=== PATIENT | female | born 1945 | race Caucasian/White ===

== ENCOUNTER → 2021-09-02 14:04 | Outpatient (CLI) | payer OTHER, SELFPAY | PROVIDERS: PCP Internal Medicine; Referring Provider Physician Assistant; Visit Provider Physician Assistant | DX: Z13.820 Encounter for screening for osteoporosis (principal); M81.0 Age-related osteoporosis without current pathological fracture; Z78.0 Asymptomatic menopausal state; Z90.710 Acquired absence of both cervix and uterus | CPT/HCPCS: 77080 ==

== ENCOUNTER 2023-11-20 08:40 | Emergency (ER) | payer OTHER, SELFPAY ==
[2023-11-20] VITALS (7 sets, daily range): BP systolic 123–133; BP diastolic 58–61; PULSE 56–61; RESP 16–22; TEMP 36.6; O2SAT 98–100; BMI 22.4
--- NOTE | 2023-11-20 08:52 | DI.RAD.S_ITS ---
PROCEDURE: XR CHEST 1V INDICATIONS: chest pain TECHNIQUE: One view of the chest was acquired. COMPARISON: None. FINDINGS: Surgical changes and devices: None. Lungs and pleura: Lungs are clear. No pleural effusions or pneumothorax. Mediastinum: Mediastinal contours appear normal. Heart size is normal. Bones and chest wall: No suspicious bony lesions. Overlying soft tissues appear unremarkable. IMPRESSION: No acute cardiopulmonary abnormality is seen. Dictated by: Tammy Marshall M.D. on 11/20/2023 at 9:04 Approved by: Tammy Marshall M.D. on 11/20/2023 at 9:05
--- NOTE | 2023-11-20 09:00 | EKG_ITS ---
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
--- NOTE | 2023-11-20 09:08 | ED.FALL ---
HPI - Fall General Chief Complaint: Syncope Stated Complaint: Fell In bathroom , Left foot pain Time Seen by Provider: 11/20/23 09:08 History of Present Illness HPI Narrative: Patient 78-year-old female history of atrial fibrillation on flecainide atenolol and Pradaxa presenting today with a fall in the bathroom. She is unaware of she fell but she ended up a very narrow spot in complaining of left foot pain. She denies hitting her head or losing consciousness but can not remember exactly how she fell. Denies chest pain palpitations abdominal pain nausea or vomiting. She has not had any infection symptoms Related Data Home Medications Medication Instructions Recorded Confirmed alendronate 70 mg tablet (Fosamax) 70 mg PO QWEEK 11/02/23 atenolol 50 mg tablet 50 mg PO DAILY 11/02/23 dabigatran etexilate 150 mg 150 mg PO BID 11/02/23 capsule (Pradaxa) flecainide 50 mg tablet 50 mg PO Q8H 11/02/23 Exam Initial Vital Signs Initial Vital Signs: Vital Signs Pulse Oximetry 99 11/20/23 08:46 GENERAL: Alert well-appearing 78-year-old female HEENT: Head atraumatic, no abrasions crepitations EOMI, pupils reactive, face symmetric, moist mucous membranes NECK: Supple no vertebral tenderness no step-off full range of motion CARDIOVASCULAR: Regular rate and rhythm without murmurs, rubs or gallops. RESPIRATORY: Breath sounds equal bilaterally, no wheezes rales or rhonchi. ABDOMEN: Soft, nontender. Normoactive bowel sounds all 4 quadrants. No guarding or rebound. EXTREMITIES: Normal range of motion, no clubbing or edema. Neurovascularly intact NEUROLOGICAL: Alert and oriented x4.Normal gait and speech. Cranial nerves II through XII grossly intact. SKIN: Warm, dry, no laceration, no petechiae, no rashes or lesions. Course Orders Ordered: ED Orders 11/20/23 08:52 XR chest 1V Stat EKG-12 Lead Stat 11/20/23 09:08 Complete Blood Count AUTO DIFF Stat Comprehensive Metabolic Panel Stat Lipase Stat Magnesium Stat NT-proBNP (BNP-Adult 18+) Stat PTT Partial Thromboplastin Sunday Stat Prothrombin Time INR Stat Troponin & CK Cardiac Panel Stat 11/20/23 09:14 CT head/brain wo con Stat XR foot LT min 3V Stat Vital Signs Vital signs: Vital Signs - 8 hr 11/20/23 08:46 11/20/23 08:47 11/20/23 08:47 Temperature Pulse Rate 59 L Respiratory Rate Blood Pressure 133/61 Pulse Oximetry 99 99 Oxygen Delivery Method 11/20/23 08:50 11/20/23 09:00 11/20/23 09:00 Temperature 97.9 F Pulse Rate 61 56 L Respiratory Rate 16 21 Blood Pressure 133/61 123/60 Pulse Oximetry 99 99 Oxygen Delivery Method Room Air 11/20/23 09:30 11/20/23 10:00 11/20/23 10:20 Temperature Pulse Rate 61 58 L 57 L Respiratory Rate 21 19 22 Blood Pressure Pulse Oximetry 98 99 100 Oxygen Delivery Method 11/20/23 10:20 Temperature Pulse Rate Respiratory Rate Blood Pressure 128/58 L Pulse Oximetry Oxygen Delivery Method MDM - Fall Lab Data 11/20/23 09:08 11/20/23 09:08 Labs: Lab Results 11/20/23 Range/Units 09:08 WBC 11.6 H (4.5-11.0) X10^3/uL RBC 4.34 (4.0-5.2) X10^6/uL Hgb 13.4 (12.0-16.0) g/dL Hct 39.5 (36-46) % MCV 91.0 (80-100) fL MCH 30.8 (26-34) PG MCHC 33.9 (30-36) % RDW 13.5 (11.6-14.8) % Plt Count 245 (150-400) X10^3/uL Neut % (Auto) 85.4 H (50-75) % Lymph % (Auto) 7.8 L (25-40) % [place] % (Auto) 5.8 (3-14) % Eos % (Auto) 0.5 L (2-4) % Baso % (Auto) 0.5 (0-2) % Neut # (Auto) 9900 H (4962-5683) /uL Lymph # (Auto) 900 L (5003-1893) /uL [place] # (Auto) 700 (0-900) /uL Eos # (Auto) 100 (0-450) /uL Baso # (Auto) 100 (0-100) /uL PT 18.6 H (9.4-12.5) SECONDS INR 1.6 H (0.9-1.3) APTT 99 H* (25.1-36.5) SECONDS Sodium 135 L (137-145) mmol/L Potassium 4.1 (3.4-5.1) mmol/L Chloride 103 (98-107) mmol/L Carbon Dioxide 25 (22-32) mmol/L BUN 10 (7-17) mg/dL Creatinine 0.76 (0.52-1.04) mg/dL Estimated GFR > 60 (>60) mL/min BUN/Creatinine Ratio 13.2 (6-22) Glucose 95 (80-110) mg/dL Calcium 9.5 (8.4-10.2) mg/dL Magnesium 2.1 (1.6-2.3) mg/dL Total Bilirubin 0.7 (0.2-1.3) mg/dL AST 21 (14-36) IU/L ALT 15 (<35) IU/L Alkaline Phosphatase 71 (38-126) U/L Total Creatine Kinase 34 (30-135) U/L Troponin I < 0.012 (0.01-0.034) ng/mL NT-Pro-B Natriuret Pep 289 (<450) pg/mL Total Protein 6.8 (6.3-8.2) g/dL Albumin 3.9 (3.5-5.0) g/dL Globulin 2.9 (1.7-4.1) g/dL Albumin/Globulin Ratio 1.3 (1.0-2.8) Lipase 70 (23-300) U/L Imaging Data CT scan - head: Radiologist's Impression: PROCEDURE: CT HEAD/BRAIN WO CON INDICATIONS: syncope on pradaxa TECHNIQUE: Noncontrast 4.5 mm thick angled axial sections acquired from the foramen magnum to the vertex, with coronal and sagittal reformats. For radiation dose reduction, the following was used: automated exposure control, adjustment of mA and/or kV according to patient size. COMPARISON: None. FINDINGS: Image quality: Diagnostic. CSF spaces: Basal cisterns are patent. No extra-axial fluid collections. The ventricles are symmetric in size and shape. Brain: No intracranial bleeds or masses. There is cerebral volume loss for age, with resultant ventricular and sulcal prominence. There are periventricular and deep white matter chronic small vessel ischemic changes. There is intracranial internal carotid artery atherosclerosis. Skull and face: Calvarium and visualized facial bones appear intact, without suspicious lesions. Sinuses: Visualized sinuses and mastoids are clear. IMPRESSION: No acute intracranial pathology. Dictated by: Tammy Marshall M.D. on 11/20/2023 at 8:46 Approved by: aTmmy Marshall M.D. on 11/20/2023 at 8:48 ECG Data Attestation: I personally reviewed and interpreted this ECG as follows: Interpretation: Normal sinus rhythm rate 56 OK interval 198 QRS [address] changes MDM Narrative Medical decision making narrative: Patient is 78-year-old female history of atrial fibrillation on Pradaxa presenting today with syncopal episode in the bathroom and left foot pain. Blood work has been reviewed mild leukocytosis 11.6, no anemia, PTT 99 probably from Pradaxa INR is 1.6, electrolytes are stable creatinine 0.7 troponin negative EKG reviewed normal sinus rhythm no ischemia or atrial fibrillation Chest x-ray no acute cardiopulmonary process, foot x-ray is negative for fractured head CT is negative for intracranial hemorrhage No significant injury from fall no cause of fall Patient has a walker at home she says that she is supposed to use it but does not always. She has support people at bedside. It is unclear exactly what happened if she had a syncopal episode or a mechanical fall. I see no reason why she had a syncopal episode today she has no significant injury or fracture. She is on Pradaxa so unlikely pulmonary embolism no evidence of intracranial hemorrhage. Discharge Plan Departure Patient Disposition: Home Clinical Impression: Contusion of foot, left, Fall Instructions: DI for Syncope in Adults (Fainting), DI for Contusion Activity Restrictions/Additional Instructions: *You have been diagnosed with left foot contusion, fall *What to do: Please walk with your walker as you are supposed to at home. May elevate and ice left foot as needed. *Continue to take medications as directed Tylenol 650 mg every 4-6 hours if needed for [id number] pain Avoid ibuprofen and aspirin-will increase bleeding while on Pradaxa *Follow up with your primary care provider in 2-3 days or call [phone] *Return to ER if you should have increasing pain swelling fever chills or any new, worsening or concerning symptoms Prescriptions: No Action atenolol 50 mg tablet 50 mg PO DAILY flecainide 50 mg tablet 50 mg PO Q8H dabigatran etexilate [Pradaxa] 150 mg capsule 150 mg PO BID alendronate [Fosamax] 70 mg tablet 70 mg PO QWEEK Stand Alone Forms: Patient Portal/API
--- NOTE | 2023-11-20 09:14 | DI.RAD.S_ITS ---
PROCEDURE: XR FOOT LT MIN 3V INDICATIONS: pain injury TECHNIQUE: 3 views of the foot were acquired. COMPARISON: None. FINDINGS: Bones: No fractures or dislocations. No suspicious bony lesions. Subchondral cystic degeneration of the 1st metatarsal head is degenerative. Soft tissues: No tibiotalar joint effusion. Achilles tendon appears normal. IMPRESSION: No acute bony abnormality. Dictated by: Tammy Marshall M.D. on 11/20/2023 at 9:05 Approved by: Tammy Marshall M.D. on 11/20/2023 at 9:06
--- NOTE | 2023-11-20 09:14 | DI.CT.S_ITS ---
PROCEDURE: CT HEAD/BRAIN WO CON INDICATIONS: syncope on pradaxa TECHNIQUE: Noncontrast 4.5 mm thick angled axial sections acquired from the foramen magnum to the vertex, with coronal and sagittal reformats. For radiation dose reduction, the following was used: automated exposure control, adjustment of mA and/or kV according to patient size. COMPARISON: None. FINDINGS: Image quality: Diagnostic. CSF spaces: Basal cisterns are patent. No extra-axial fluid collections. The ventricles are symmetric in size and shape. Brain: No intracranial bleeds or masses. There is cerebral volume loss for age, with resultant ventricular and sulcal prominence. There are periventricular and deep white matter chronic small vessel ischemic changes. There is intracranial internal carotid artery atherosclerosis. Skull and face: Calvarium and visualized facial bones appear intact, without suspicious lesions. Sinuses: Visualized sinuses and mastoids are clear. IMPRESSION: No acute intracranial pathology. Dictated by: Tammy Marshall M.D. on 11/20/2023 at 8:46 Approved by: Tammy Marshall M.D. on 11/20/2023 at 8:48
[2023-11-20 09:16] LABS: Add Manual Diff / Slide Review NO; Basophils Absolute Auto 100 /uL (0-100); Basophils Percent Auto 0.5 % (0-2); Eosinophils Absolute Auto 100 /uL (0-450); Eosinophils Percent Auto 0.5 % (2-4); Hematocrit 39.5 % (36-46); Hemoglobin 13.4 g/dL (12.0-16.0); Lymphocytes Absolute Auto 900 /uL (1100-4500); Lymphocytes Percent Auto 7.8 % (25-40); Mean Corpuscular HGB Conc 33.9 % (30-36); Mean Corpuscular Hemoglobin 30.8 PG (26-34); Monocytes Absolute Auto 700 /uL (0-900); Monocytes Percent Auto 5.8 % (3-14); Neutrophils Absolute Auto 9900 /uL (1500-7000); Neutrophils Percent Auto 85.4 % (50-75); Platelet Count 245 X10^3/uL (150-400); Red Blood Cell Count 4.34 X10^6/uL (4.0-5.2); Red Cell Distribution Width 13.5 % (11.6-14.8); White Blood Cell Count 11.6 X10^3/uL (4.5-11.0)
[2023-11-20 09:23] LABS: INR 1.6 (0.9-1.3); Prothrombin Time 18.6 SECONDS (9.4-12.5)
[2023-11-20 09:26] LABS: PTT Partial Thromboplastin Tim 99 SECONDS (25.1-36.5)
[2023-11-20 09:28] LABS: Alanine Aminotransferase 15 IU/L (<35); Albumin 3.9 g/dL (3.5-5.0); Albumin Globulin Ratio 1.3 (1.0-2.8); Alkaline Phosphatase 71 U/L (38-126); Aspartate Aminotransferase 21 IU/L (14-36); BUN Creatinine Ratio 13.2 (6-22); Bilirubin Total 0.7 mg/dL (0.2-1.3); Blood Urea Nitrogen 10 mg/dL (7-17); Calcium 9.5 mg/dL (8.4-10.2); Carbon Dioxide 25 mmol/L (22-32); Chloride 103 mmol/L (98-107); Creatine Kinase 34 U/L (30-135); Estimated Glomerular Filt Rate > 60 mL/min (>60); Globulin 2.9 g/dL (1.7-4.1); Glucose 95 mg/dL (80-110); HEMOLYSIS < 15 (0-50); Lipase 70 U/L (23-300); Magnesium 2.1 mg/dL (1.6-2.3); Potassium 4.1 mmol/L (3.4-5.1); Sodium 135 mmol/L (137-145); Total Protein 6.8 g/dL (6.3-8.2)
[2023-11-20 09:40] LABS: NT-proBNP (BNP-Adult 18+) 289 pg/mL (<450); Troponin I < 0.012 ng/mL (0.01-0.034)
== END 2023-11-20 10:25 | disposition home or self-care (01) ==
PROVIDERS: Emergency Provider Emergency Medicine
DX: S90.32XA Contusion of left foot, initial encounter (principal); R07.9 Chest pain, unspecified; W18.30XA Fall on same level, unspecified, initial encounter; Z79.01 Long term (current) use of anticoagulants
CPT/HCPCS: 36415; 70450; 71045; 73630; 80053; 82550; 83690; 83735; 83880; 84484; 85025; 85610; 85730; 93005; 99284